=== PATIENT | male | born 1985 | race Caucasian/White ===

== ENCOUNTER → 2019-04-23 | Outpatient (CLI) | payer BC ==
--- NOTE | 2019-04-23 11:26 | CARD ---
MR#: [id number] Date of Study: 04/23/2019 Ordering Physician: LIMA MENJIVAR, Referring Physician: LIMA MENJIVAR, Tech: APPROVED REPORT EXAM: Two-dimensional and M-mode echocardiogram with Doppler and color Doppler. INDICATION Tetralogy of Fallot 2D DIMENSIONS RVDd3.2 (2.9-3.5cm)IVSd0.8 (0.7-1.1cm) Aortic Root(2D)3.8 (2.0-3.7cm)LVDd4.9 (3.9-5.9cm) LVOT Diameter2.4 (1.8-2.4cm)PWd0.9 (0.7-1.1cm) LVDs3.6 (2.5-4.0cm)FS (%) 27.7 % SV61.8 mlLVEF(%)53.5 (>50%) Aortic Valve AoV Peak Jak.83.6cm/Geraldine Peak GR.2.8mmHg LVOT Peak Jak.83.5cm/sAVA (VMAX)4.35cm2 Mitral Valve MV E Anqllbft55.0cm/sMV DECEL [id number] MV A Qttxpens30.4cm/sE/A Ratio2.2 MV A [id number] Pulmonary Valve PV Peak Awhuzcmr323.4cm/s Tricuspid Valve TR P. Jcyarczd580sl/sTR Peak Gr.15mmHg Pulmonary Vein S1 Qtmblhag99.2cm/sD2 Khfhujji48.3cm/s PVa [id number] LEFT VENTRICLE The left ventricle is normal size. There is normal left ventricular wall thickness. The left ventricu lar systolic function is normal. The ejection fraction is 55%. Abnormal septal motion from post-opera tive state. Transmitral Doppler flow pattern is normal for age. There is no ventricular septal defect visualized. RIGHT VENTRICLE The right ventricle is mildly dilated. The right ventricular systolic function is normal. ATRIA The left atrium size is normal. The right atrium size is normal. The interatrial septum is intact wit h no evidence for an atrial septal defect or patent foramen ovale as noted on 2-D or Doppler imaging. AORTIC VALVE The aortic valve is normal in structure and function. Doppler and Color Flow revealed trace aortic re gurgitation. There is no significant aortic valvular stenosis. MITRAL VALVE The mitral valve is normal in structure and function. There is no evidence of mitral valve prolapse. There is no mitral valve stenosis. Doppler and Color-flow revealed trace mitral regurgitation. TRICUSPID VALVE The tricuspid valve is normal in structure and function. Doppler and Color Flow revealed trace to mil d tricuspid regurgitation. PAP is estimated at 20 mmHg. There is no tricuspid valve prolapse or veget ation. There is no tricuspid valve stenosis. GREAT VESSELS The aortic root is normal in size. The ascending aorta is Mildly dilated at 4.1 cm. The pulmonary art adelita is normal. The IVC is normal in size and collapses >50% with inspiration. PERICARDIAL EFFUSION There is no evidence of significant pericardial effusion. Critical Notification Critical Value: No <Conclusion> The left ventricular systolic function is normal. The ejection fraction is 55%. Abnormal septal motion from post-operative state. Trace mitral regurgitation. Trace to mild tricuspid regurgitation. PAP is estimated at 20 mmHg. There is no evidence of significant pericardial effusion. Signed by : Lima Menjivar, Electronically Approved : 04/23/2019 11:25:47
== END | disposition home or self-care (01) ==
LOC: ECHO 09:46
PROVIDERS: ATTEND Internal Medicine Cardiovascular Disease
DX: I36.1 Nonrheumatic tricuspid (valve) insufficiency (principal); Q21.3 Tetralogy of Fallot
CPT/HCPCS: 93306